=== PATIENT | male | born 1925 | race Caucasian/White ===

== ENCOUNTER 2016-09-08 21:51 | Inpatient (IN) | payer MEDICARE ==
[~2016-09-08] VITALS: Ht 175.3 cm; Wt 75.2 kg
[~2016-09-08 21:51] MED LIST: ACET325T51 PO; ASCO250T7 PO; CHOL10008 PO; CLOP75TA3 PO; FUR20 PO; GLYB1.253 PO; LISI-567 PO; LOVA20TA PO; METO25TA6 PO; MULT1CAP33 PO; POTA10CA42 PO; PRE20 PO; UBID100C25 PO; prevagen PO
[2016-09-08 21:54] VITALS: BP 151/84; PULSE 60; RESP 20; O2SAT 97
[2016-09-08 22:04] VITALS: BP 151/84; PULSE 60; RESP 20; O2SAT 97
--- NOTE | 2016-09-08 22:08 | ED.REPORT ---
HPI-Dyspnea / Wheezing Date of Service Sep 08, 2016 ED Provider: Dillon Gann MD Pt is a demented 89 year old male with a history of atrial fibrillation, congestive heart failure, diabetes mellitus, hypertension, and coronary artery disease who presents to the ED with concerns for increased shortness of breath today, following a brief episode of chest pain this morning. His states that the episode of chest past this morning lasted a couple of minutes and was severe enough to make him lay in his bed. Pt's also reports ongoing shortness of breath, with dyspnea on exertion that was worse in severity today. He reports taking his medications as prescribed. He denies any radiation of his chest pain, cough, diaphoresis, fever, chills, or other complaints. Patient was last admitted to [facility] on 08/06 for similar complaints. Patient has refused anticoagulation for atrial fibrillation in the past. History is limited by the patient's dementia. Nursing Notes Stated Complaint: SOB/ HIGH BLOOD PRESSURE Chief Complaint: Respiratory Distress Nursing Notes Reviewed: Yes Allergies: Coded Allergies: ibuprofen (Verified Allergy, Severe, 09/08/16) bleeding Scheduled ([prevagen]) 1 TAB PO QAM Ascorbate Calcium (Vitamin C) 500 Mg Tablet 500 MG PO DAILY Cholecalciferol (Vitamin D3) (Vitamin D3) 1,000 Unit Tab.chew 1,000 UNIT PO HS Clopidogrel Bisulfate (Plavix) 75 Mg Tablet 75 MG PO DAILY Furosemide (Furosemide) 40 Mg Tablet 40 MG PO DAILY Lisinopril (Lisinopril) 20 Mg Tablet 20 MG PO DAILY Lovastatin (Lovastatin) 20 Mg Tablet 20 MG PO HS Memantine (Namenda) 10 Mg Tablet 10 MG PO BID Metoprolol Tartrate (Metoprolol Tartrate) 25 Mg Tablet 25 MG PO BID Multivitamin (Multivitamins) 1 Each Capsule 1 EACH PO DAILY Scheduled PRN Acetaminophen (Acetaminophen) 325 Mg Tablet 325 MG PO Q4H PRN PRN For Fever Miscellaneous Medications Ubidecarenone (Co Q10) 100 Mg Capsule 100 MG PO General Time Seen by MD: 22:08 Chief Complaint Shortness of breath Hx Obtained From: Patient, Spouse Arrived By: Walk-in Sudden in Onset?: Yes Onset Occurred: 5 - 8 hours ago Symptom Duration: 1 - 15 minutes Location: : None Severity: Current: No pain currently Severity: Maximum: Mild Similar Sx Previous: Yes Past Medical History Past Medical History Paroxysmal a-fib - not on anticoagulation Sigmoid diverticulosis 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 Dementia Bilateral carotid stenosis from MRA in 2009 H/o TIA's Reports: Congestive heart failure, Coronary artery disease, Diabetes mellitus, Hyperlipidemia, Hypertension Reports: Thyroid disease Past Surgical History Hemorrhoid surgery Reports: Cholecystectomy Smoking History Former Smoker Social History Other Social History: Good social support, , Local resident Ambulatory Status Independent Review of Systems Unable to Obtain ROS Mental status (limited by dementia) Constitutional: Denies: Chills, Fever, Weakness - generalized Respiratory: Reports: Shortness of breath, Denies: Non-productive cough, Wheezing Cardiovascular: Reports: Chest pain, Denies: Syncope Musculoskeletal: Denies: Extremity pain, Extremity swelling Skin: Denies Diaphoresis Physical Exam Initial Vital Signs Vital Signs (First) Date Time Temp Pulse Resp B/P Pulse Ox O2 Delivery O2 Flow Rate FiO2 09/08/16 21:54 36.2 60 20 151/84 97 Room Air Initial VS: Reviewed Head / Eyes: Atraumatic, Normocephalic, PERRL ENT: Mucous membranes moist, Conjunctiva normal, No scleral icterus Abdomen / GI: Soft, Non-tender, No guarding, No rebound, No distention Extremities: Vascular intact, Neuro intact Skin: Warm, Dry, No cyanosis Neurologic: Alert, Nonfocal Psychiatric: Mood/affect normal, Behavior normal General/Constitutional: Awake, Alert, Well nourished, Cooperative Neck: Atraumatic, Supple Positive jugular venous distention Respiratory / Chest: Atraumatic, Breath sounds NL, Breath sounds = bilat, No respiratory distress Cardiovascular: Heart sounds NL, No gallop, No murmurs, No rubs Interpretation & Diagnostics Lab Results Interpretation Result Diagram: 09/09/16 0645 09/09/16 0645 Test 09/09/16 00:05 Total Bilirubin 0.6mg/dL (0.0-1.2) Aspartate Amino Transf (AST/SGOT) 15U/L (0-50) Alanine Aminotransferase (ALT/SGPT) 9U/L (0-44) Alkaline Phosphatase 71U/L (25-160) Pro-B-Type Natriuretic Peptide 7574pg/mL (0-486) Total Protein 6.4g/dL (6.4-8.4) Albumin 3.2g/dL (3.4-5.0) ECG Interpretation ECG Interpretation: Atrial fibrillation, Rate 92 LBBB No change from prior Time: 22:47 Interpreted by: ED physician X-Ray Chest Interpretation Chest Xray Interpretation: Chronic changes. Cardiomegaly. No significant changes from previous View: Portable, 1 view Interpretation / Wet Read by: Wet read ED physician Re-Eval/Medical Decision Med Decision/Clinical Course Received in transfer from Dr. Stevens at midnight. Labs reported subsequently show marked increase in troponin, consistent with non-STEMI. His chronic troponin leak with chronic CHF and strain, but he is numbers are now ten fold above upper limit of normal and 6-7 fold above his recent baseline plateau. He is in no distress at present, with no chest pain. He is quite demented and rarely able to process the need to be in the hospital. wants him admitted. Source of Hx: Old records Summary of Info: Pt was admitted 08/06-08/08 for a CHF exacerbation, gout, a-fib. Anti-coagulation was suggested, he refused. Re-Evaluation/Progress : Time of Eval: 01:31 Re-Evaluation/Progress Note: Care assumed by Dr. Gann. Informed his of the results of his labs, chest x-ray, and EKG. It is recommended that he be admitted to the hospital at this time. Troponin is now very elevated. His BNP is also elevated. His agrees with the plan for hospital admission. All questions were addressed. Consultation : Referral / Consult Name: Maisha Crawford DO Consulted With: Hospitalist Call Returned at: 02:02 Table Worker: Will see patient, Agrees with eval, Agrees with plan, Accepts admit Note: Spoke with Dr. Crawford, hospitalist, who agrees to accept admit. Counseled Regarding: Diagnosis, Lab results, Need for admission Discharge & Departure Impression: Primary Impression: NSTEMI (non-ST elevated myocardial infarction) Additional Impressions: Acute exacerbation of CHF (congestive heart failure) Elevated troponin Disposition: ADMITTED TO HOSPITAL Discharge Condition All VS Reviewed: Yes Condition: Stable Referrals: Laura Humphries MD (PCP) Care Transferred to: Dr. Gann Care Transferred at: 00:00 Scribe Attestation Portions of this note were transcribed by Yuni Santoyo and Ivory Darden. I, Dr. Stevens and Dr. Gann, personally performed the history, physical exam and medical decision-making; I reviewed and confirmed the accuracy of the information in the transcribed note. Signed by: Adryan Back, 09/08/2016 3823 Signed by: Adryan York, 09/09/2016 0203 copies to: Laura Humphries MD, Donald L MD Sep 08, 2016 22:08 RAAD SANTOYO Sep 08, 2016 22:15 Ivory Darden Sep 09, 2016 00:00 Dillon Gann MD Sep 09, 2016 01:44 Pro-B-Type Natriuretic Peptide 7574pg/mL (0-486) Total Protein 6.4g/dL (6.4-8.4) Albumin 3.2g/dL (3.4-5.0) ECG Interpretation ECG Interpretation: Atrial fibrillation, Rate 92 LBBB No change from prior Time: 22:47 Interpreted by: ED physician X-Ray Chest Interpretation Chest Xray Interpretation: Chronic changes. Cardiomegaly. No significant changes from previous View: Portable, 1 view Interpretation / Wet Read by: Wet read ED physician Re-Eval/Medical Decision Med Decision/Clinical Course Received in transfer from Dr. Stevens at midnight. Labs reported subsequently show marked increase in troponin, consistent with non-STEMI. His chronic troponin leak with chronic CHF and strain, but he is numbers are now ten fold above upper limit of normal and 6-7 fold above his recent baseline plateau. He is in no distress at present, with no chest pain. He is quite demented and rarely able to process the need to be in the hospital. wants him admitted. Source of Hx: Old records Summary of Info: Pt was admitted 08/06-08/08 for a CHF exacerbation, gout, a-fib. Anti-coagulation was suggested, he refused. Re-Evaluation/Progress : Time of Eval: 01:31 Re-Evaluation/Progress Note: Care assumed by Dr. Gann. Informed his of the results of his labs, chest x-ray, and EKG. It is recommended that he be admitted to the hospital at this time. Troponin is now very elevated. His BNP is also elevated. His agrees with the plan for hospital admission. All questions were addressed. Consultation : Referral / Consult Name: Sullenberger,Maisha E DO Consulted With: Hospitalist Call Returned at: 02:02 Table Worker: Will see patient, Agrees with eval, Agrees with plan, Accepts admit Note: Spoke with Dr. Crawford, hospitalist, who agrees to accept admit. Counseled Regarding: Diagnosis, Lab results, Need for admission Discharge & Departure Impression: Primary Impression: NSTEMI (non-ST elevated myocardial infarction) Additional Impressions: Acute exacerbation of CHF (congestive heart failure) Elevated troponin Disposition: ADMITTED TO HOSPITAL Discharge Condition All VS Reviewed: Yes Condition: Stable Referrals: Laura Humphries MD (PCP) Care Transferred to: Dr. Gann Care Transferred at: 00:00 Adryan Attestation Portions of this note were transcribed by Yuni Santoyo and Ivory Darden. I, Dr. Stevens and Dr. Gann, personally performed the history, physical exam and medical decision-making; I reviewed and confirmed the accuracy of the information in the transcribed note. Signed by: Adryan Back, 09/08/2016 2215 Signed by: Adryan York, 09/09/2016 0203 copies to: Laura Humphries MD, Donald L MD Sep 08, 2016 22:08 RAAD SANTOYO Sep 08, 2016 22:15 Ivory Darden Sep 09, 2016 00:00 Dillon Gann MD Sep 09, 2016 01:44
[2016-09-08] MEDS ORDERED: GLYB1.253 PO (23:06)
[2016-09-08] MEDS ORDERED: ASCO-294 PO (23:06)
[2016-09-08] MEDS ORDERED: FURO40TA4 PO (23:06)
[2016-09-08] MEDS ORDERED: CHOL10008 PO (23:06)
[2016-09-08] MEDS ORDERED: NAM10 PO (23:06)
[2016-09-09] VITALS (7 sets, daily range): BP systolic 138–152; BP diastolic 54–72; PULSE 70–91; RESP 16–20; O2SAT 93–100
[2016-09-09 00:17] LABS: BASOPHILS % (AUTO) 0.1 % (0-3); EOSINOPHILS % (AUTO) 1.4 % (0-5); MONOCYTES % (AUTO) 8.2 % (4-12); Mean Corpuscular Hemoglobin 31.4 pg (27.0-35.0); Mean Corpuscular Volume 97.6 fL (81-100); NEUTROPHILS % (AUTO) 78.9 % (40-74); Platelet Count 126 bil/L (150-400)
[2016-09-09 00:57] LABS: TROPONIN T 0.16 ug/L (0.0-0.011)
[2016-09-09] MEDS ORDERED: Heparin 5,000 Unit/mL Inj IVPUSH ONE (01:45)
[2016-09-09] MEDS ORDERED: Furosemide 10 mg/mL 4 mL Inj IVPUSH ONE (01:45)
[2016-09-09] MEDS ORDERED: Nitroglycerin 2% 1 Gm Ointment TOPICAL SCH (01:45)
[2016-09-09] MEDS ORDERED: Heparin 5,000 Unit/mL Inj IVPUSH PRN (01:45)
[2016-09-09] MEDS ORDERED: Polyethylene Glycol (PEG) 17 Gm Powder PO PRN (02:25)
[2016-09-09] MEDS ORDERED: Ondansetron 2 mg/mL 2 mL Inj IVPUSH PRN (02:25)
[2016-09-09] MEDS ORDERED: Alum-Mag Hydrox-Simeth 30 mL Suspension PO PRN (02:25)
[2016-09-09] MEDS ORDERED: Senna-Docusate 8.6-50 mg Tablet PO PRN (02:25)
[2016-09-09] MEDS: Heparin 25K Unit/500mL 0.45 NS 25,000 UNIT in IV Premix 1 EACH IV SCH (02:34)
--- NOTE | 2016-09-09 03:43 | PCM.HPMED ---
Subjective Date of Service Sep 09, 2016 Primary Provider: Admitting Physician: Maisha Crawford DO Primary Care Physician: Laura Humphries MD Attending Physician: Maisha Crawford DO Admit Status: From the Emergency Department, Full Admit Chief Complaint: Chest pain and shortness of breath. . History of Present Illness: Scott Bolaños is a demented 89-year-old male with a past medical history significant for atrial fibrillation, congestive heart failure, diabetes mellitus , hypertension, and coronary artery disease who presents to [facility] Emergency Department with concerns for two episodes of chest pain with accompanying shortness of breath. His states that he had 2 episodes of chest pain today. She reports one episode of chest pain at rest that lasted several minutes. The second episode of chest pain occurred while he was exerting himself by climbing up his flight of stairs to the bedroom and was severe enough to make him lay in his bed. A second episode of chest pain lasted 2-3 minutes as well and resolved with rest. The pain was described as pressure-like sensation. The pain is located substernally and does not radiate. The patients also reports ongoing shortness of breath, with dyspnea on exertion that was worse in severity today. He reports taking his medications as prescribed. He denies headache, any radiation of his chest pain, cough, diaphoresis, nausea, vomiting fever, chills, or other complaints. He was last admitted to [facility] on 08/06 for similar complaints. History is somewhat limited by the patient's dementia. Vital signs in the ER: Temperature 36.2. Pulse 60. Respiratory rate 20. Blood pressure 151/84. Pulse ox 97% and remained. He was given half inch nitroglycerin paste, Lasix 40 mg IV 1 and started on a cardiac heparin drip. PCP is Trisha Humphries MD. . Review of Systems: A comprehensive review of systems was conducted with the patient and found to be negative except as above in the History of Present Illness. . Allergies Coded Allergies: ibuprofen (Verified Allergy, Severe, 09/08/16) bleeding Home Medications ([prevagen]) 1 TAB PO QAM Ascorbate Calcium (Vitamin C) 500 Mg Tablet 500 MG PO DAILY Cholecalciferol (Vitamin D3) (Vitamin D3) 1,000 Unit Tab.chew 1,000 UNIT PO HS Clopidogrel Bisulfate (Plavix) 75 Mg Tablet 75 MG PO DAILY Furosemide (Furosemide) 40 Mg Tablet 40 MG PO DAILY Lisinopril (Lisinopril) 20 Mg Tablet 20 MG PO DAILY Lovastatin (Lovastatin) 20 Mg Tablet 20 MG PO HS Memantine (Namenda) 10 Mg Tablet 10 MG PO BID Metoprolol Tartrate (Metoprolol Tartrate) 25 Mg Tablet 25 MG PO BID Multivitamin (Multivitamins) 1 Each Capsule 1 EACH PO DAILY Potassium Chloride (Potassium Chloride) 10 Meq Capsule.er 8 MEQ PO DAILY Acetaminophen (Acetaminophen) 325 Mg Tablet 325 MG PO Q4H PRN PRN For Fever Glyburide (Glyburide) 1.25 Mg Tablet 1.25 MG PO HS PRN PRN hyperglycemia . PMH 1. Paroxysmal atrial fibrillation not on anticoagulation. 2. Sigmoid diverticulosis 3. 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 4. Dementia. 5. Bilateral carotid stenosis from MRA in 2009. 6. History of TIA's. 7. Systolic and diastolic CHF (Echo 10/2015 shows EF 35-40% with inferior wall hypokinesis). 8. Coronary artery disease status post stenting x 2 (of mid and distal RCA in ) 9. Diabetes mellitus type II, diet controlled. 10. Hyperlipidemia. 11. Hypertension. 12. Hypothyroidism. 13. CKD stage II. 14. Anemia of chronic disease. . Surgical History 1. Hemorrhoid surgery. 2. Cholecystectomy. . Family History Mother had diabetes mellitus type II and colonic surgery and shortly after postoperatively of an [place] in her 80s. Father of old age at 98 years old. A brother and sister both who from lung cancer. . Social History Hx Alcohol Use: No Hx Substance Use: No Hx Tobacco Use: Yes (20 pack year history; quit in 1967) Smoking Status: Former Smoker Additional Information The patient has been for 55 years, has 1 biological son of his own who is healthy, and worked in the , as well as, for [employer]. . Exam Vital Signs Vital Sign - Last Date Time Temp Pulse Resp B/P Pulse Ox O2 Delivery O2 Flow Rate FiO2 09/08/16 22:04 36.2 60 20 151/84 97 Room Air Exam General: Elderly male lying in bed and in no acute distress, well-developed, well-nourished, appropriately interactive. HEENT: Normocephalic, atraumatic. External ears without defect. Pupils equal, round, and reactive to light. Anicteric sclerae, moist conjunctivae, and no lid lag. Oropharynx free of erythema and cobble stoning with moist mucosa. Neck: Supple with full range of motion. No jugular venous distension. No bruits. No lymphadenopathy or thyromegaly. Cardiovascular: Irregularly irregular without murmurs, rubs, or gallops appreciated. Pulmonary: Clear to auscultation bilaterally throughout except for fine crackles at left base. No wheezes or rhonchi. Normal respiratory effort with no use of accessory muscles. Abdomen: Soft, nontender, nondistended, bowel sounds present. No hepatosplenomegaly or masses appreciated. Extremities: No clubbing or cyanosis. Slight trace pitting edema. Skin: Normal temperature, turgor, and texture; no rash, ulcers, or subcutaneous nodules appreciated. Neurological: Cranial nerves grossly intact. Normal muscle strength, tone, and bulk. Reflexes, coordination, and sensory function within normal limits. No known gait impairment. Psychiatric: Normal mood and affect. Alert and oriented to person, place, and time. . Lab and Diagnostics Labs Item Value Date Time Calcium Level 8.2 mg/dL L 09/09/16 0005 Magnesium Level 2.0 mg/dL 09/09/16 0005 Total Bilirubin 0.6 mg/dL 09/09/16 0005 Aspartate Amino Transf (AST/SGOT) 15 U/L 09/09/16 0005 Alanine Aminotransferase (ALT/SGPT) 9 U/L 09/09/16 0005 Alkaline Phosphatase 71 U/L 09/09/16 0005 Troponin T 0.160 ug/L *H 09/09/16 0005 Pro-B-Type Natriuretic Peptide 7574 pg/mL H 09/09/16 0005 Total Protein 6.4 g/dL 09/09/16 0005 Albumin 3.2 g/dL L 09/09/16 0005 Result Diagram: 09/09/16 0005 09/09/16 0005 X-Rays, CTs and MRIs Chest x-ray read by resident: Pulmonary edema with cephalization likely secondary to CHF exacerbation. Official read pending. . 12-lead ECG EKG: Atrial fibrillation, heart rate 92, blood bundle branch block. Cardiac Echo Impressions Echocardiogram Interpretation Summary: Afib with variable rate; HR is 95-106 bpm. Wide QRS complexes. Mildly dilated LV wsith normal wall thickness. There is inferior wall severe hypokinesis and septal dyskinesis consistent with conduction system disease. EF is estimated at 30-35%. There are no significant valvular abnormalities. Compared to prior study 10/30/2015, LV is less dynamic; afib rate control is worse. EF is down slightly from 35-40% to 30-35%. . Assessment & Plan Scott Bolaños is a demented 89-year-old male with a past medical history significant for atrial fibrillation, congestive heart failure, diabetes mellitus , hypertension, and coronary artery disease who presents to [facility] Emergency Department with concerns for two episodes of chest pain with accompanying shortness of breath. 1. Acute chest pain, present on admission. Active. - Patient presented with 2 episodes of chest pain earlier today with accompanying shortness of breath and substantially more elevated troponins than in the past.. - Cardiac risk factors include hypertension, hyperlipidemia, former smoker, CAD status post stents 2, - EKG shows atrial fibrillation with left bundle branch block, as above. However, he meets Sgarbossa's criteria with greater than 1 mm elevation in concordant leads in lead V2 possibly indicative of STEMI vs NSTEMI. - Recent echocardiogram 07/2017 shows EF of 30-35%, as above. - Ordered serial troponins 3. - Supplemental oxygen as needed. - Morphine as needed 1-2 mg IV every 15 minutes for chest pain. - Nitro Paste as needed. Currently has half an inch in place. - Received aspirin 81 mg in ED. Continue aspirin 81 mg daily. - Cardiac heparin gtt started. - Continue to monitor closely on telemetry and vital signs. - Patient currently has had nothing by mouth overnight. May consider heart healthy diet once cardiology has seen the patient. - Dayteam to consult cardiology first thing in the morning. 2. Acute on chronic systolic CHF exacerbation present on admission. Active. - Patient received 40 mg IV Lasix in the ED. Continue this daily for now. - Chest x-ray revealed pulmonary edema with cephalization represent fluid overload. - Monitor dyspnea on exertion and signs of fluid overload daily. Chronic problems: Anemia of chronic disease, chronic. - Secondary to CKD stage II. - Monitor H&H closely. Paroxysmal atrial fibrillation not on anticoagulation. - Patient on metoprolol tartrate 25 mg twice a day which will continue. Dementia, chronic. - Continue memantine 10 mg twice a day. Coronary artery disease status post stenting x 2 (of mid and distal RCA in 2007). - See plan above under problem #1 Diabetes mellitus type II, diet controlled. - Started low correction dose insulin. - Ordered hemoglobin A1c, pending. - May consider heart healthy diet/ carbohydrate consistent diet once cardiology has seen the patient. Hyperlipidemia. - Continue home statin lovastatin 20 mg Hypertension. - Continue home dose lisinopril 20 mg daily. PRN antiemetics: Zofran and Maalox. PRN bowel regimen: Senna and MiraLAX. PRN analgesics: Tylenol and morphine. High risk medications: Morphine Patient is admitted under inpatient status with expected length of stay greater than 2 midnights due to severity of presenting symptoms, risk of adverse event, and complexity of treatment plan. . VTE Prophylaxis: Other (heparin GTT) Resuscitation Status: Limited Interventions (DO NOT INTUBATE, chest compressions, IV fluids, and antibiotics are okay) Attending Statement The patient was seen and examined together with house staff on 09/09/2016 and I agree with the history, exam and plan as outlined in the note above. Vicki Sylvester DO Sep 09, 2016 03:25 Maisha Crawford DO Sep 09, 2016 05:54
--- NOTE | 2016-09-09 04:19 | NUR ---
Admit Pt arrived on unit at 0320 [facility]. Pt SBA to ambulate to BR, scale and bed. Pt A&O to self/place. at bedside. Pt has dementia and is poor historian. Health history provided by . Pt denies CP or pressure at this time. VSS. See flowsheet for full assessment.
[2016-09-09] MEDS ORDERED: Glucose 40% Oral Gel 15 Gm Tube PO PRN (04:45)
[2016-09-09 07:04] LABS: BASOPHILS % (AUTO) 0.1 % (0-3); EOSINOPHILS % (AUTO) 1.9 % (0-5); MONOCYTES % (AUTO) 10.8 % (4-12); Mean Corpuscular Hemoglobin 31.2 pg (27.0-35.0); Mean Corpuscular Volume 97.4 fL (81-100); NEUTROPHILS % (AUTO) 65.7 % (40-74); Platelet Count 117 bil/L (150-400)
--- NOTE | 2016-09-09 07:27 | DRSVH ---
PROCEDURE: X-RAY CHEST ONE VIEW, PORTABLE ([id number]) INDICATIONS: dyspnea TECHNIQUE: One view of the chest was acquired. COMPARISON: [facility], CR, XR CHEST 1VW (PORTABLE), 08/06/2016, 1:32. [facility], CR, XR CHEST 1VW (PORTABLE), 05/07/2016, 18:18. FINDINGS: Surgical changes and devices: None. Lungs and pleura: No pleural effusions or pneumothorax. Mild chronic appearing basilar interstitial pulmonary opacity. Mediastinum: Mediastinal contours appear normal. Heart size is enlarged. Bones and chest wall: No suspicious bony lesions. Overlying soft tissues appear unremarkable. IMPRESSION: No acute process. Concordant with preliminary interpretation. Dictated by: Norma Pearl M.D. on 09/09/2016 at 7:25 Approved by: Norma Pearl M.D. on 09/09/2016 at 7:26
[2016-09-09] MEDS: Insulin LISPRO 300 Unit/3 mL Inj SUBQ SCH ×4 (08:00→20:17)
[2016-09-09] MEDS ORDERED: Furosemide 10 mg/mL 4 mL Inj IVPUSH SCH (08:30)
--- NOTE | 2016-09-09 08:41 | NUR ---
Poor Historian Patient cooperative with care, but states he does not remember what kind of medications he takes or how often. Reported to MD. Care continues.
[2016-09-09] MEDS: Sodium Chloride LOK Flush 10 mL Syringe IVFLUSH SCH ×2 (09:09→17:44)
[2016-09-09] MEDS ORDERED: UBID100C27 PO (10:47)
--- NOTE | 2016-09-09 11:10 | NUR ---
Social Work Note: Initial Assessment Data& Assessment: EMR reviewed. SW met with pt and pt at bedside to discuss discharge planning, SW role explained. Scott Bolaños is a 89 year old male admitted on 09/09/2016 for CHF and elevated troponin. Pt has [employer] Medicare insurance coverage and sees Dr. Humphries for primary care. Pt lives in [place] with his in a two story home with 7 steps to enter the home and 7 steps to reach the second floor of the home. Pt uses a cane at baseline, and also owns a FWW. Pt is currently ambulating SBA with a cane in his room. Pt assists with medication management, chores, SBA showering and meal preparation. Pt is otherwise independent with all other ADL's. Pt transports pt to any appointments, pt does not drive. Pt has had [facility] recently, not currently open with their services. Pt has not been to a SNF before. Pt does not have LTC insurance or VA benefits, although pt is a [employer] . Pt has DPOA paperwork completed at home, SW requested a copy when possible. Pt to transport pt home when medically ready. Pt denies any other needs at this time. SW provided SW phone number on pt white board. No other discharge needs identified at this time. SW to continue to follow if any needs arise. Plan: Anticipated discharge home via POV when medically ready. Pt is ambulating at his baseline at this time. Pt denies any other needs at this time. No other discharge needs identified at this time. SW to continue to follow if any needs arise. TAYLOR Gao Addendum: 09/09/16 at 1116 by LIDIA DOMINGUEZ Amended: Links added.
--- NOTE | 2016-09-09 12:45 | NUR ---
Echo Echo being performed unable to give 1215 medication. Waiting until ECHO finished.
--- NOTE | 2016-09-09 14:46 | CONS ---
[address] [address] CONSULTATION REPORT PATIENT: TREVON KIDD : 1925 MR#: [id number] ADMIT: 09/09/2016 JOB ID: [id number] DATE OF SERVICE: 09/09/2016 REASON FOR CARDIOLOGY CONSULT: For the evaluation of chest pain, abnormal troponin. CHIEF COMPLAINT: Chest pain, shortness of breath as per the chart. However, when I asked patient he does not remember what symptoms did he have. His bakery clerk, Dr. Ziegler. PRESENT HISTORY: This 89-year-old, male who has a history of coronary artery disease dated back after 2007. At that time, he had acute coronary syndrome with 90% mid and 80% to 90% distal RCA, status post TAXUS stent placement to the mid as well as distal RCA, progressively worsening ischemic cardiomyopathy since then, with LV ejection fraction 30% to 35% based on echocardiogram done on August 06, 2016, chronic left bundle branch block, atrial fibrillation, carotid artery disease, peripheral vascular disease, history of TIA, significant dementia, frailty. That is why he is not on anticoagulation, history of pulmonary hypertension, history of systolic and diastolic heart failure, chronic kidney disease, type 2 diabetes mellitus, essential hypertension, hyperlipidemia, chronic thrombocytopenia, anemia. Was brought to the ED by his because of chest pain episode yesterday. At present, patient is in room by himself. When I asked about his symptoms, he does not remember. At present, he is not having any active chest pain or shortness of breath. He appears comfortable. He does not appear to be in any distress. As per the history and physical done in this admission the patient had two episodes of chest pain yesterday, while exertion as well as rest. Lasted several minutes. I do not have his at home. No other history available by patient. At present, he is not coughing. I do not see any active blood. He is not having any stroke-like symptoms. No obvious fever or chills. The patient was recently seen by Dr. Ziegler. No aggressive cardiac workup was performed because of his comorbid conditions, significant dementia. PAST MEDICAL HISTORY: History of coronary artery disease, status post TAXUS stent placement to the mid RCA, as well as distal RCA in November 2007, progressively worsening LV function with LV ejection fraction about 30% to 35% with chronic inferior wall hypokinesis, preserved RV function, pulmonary artery systolic pressure up to 72 mmHg in the past, history of initial paroxysmal AFib and chronic AFib with underlying left bundle branch block, history of systolic and diastolic heart failure, significant dementia, essential hypertension, hypercholesterolemia, hypothyroidism, chronic thrombocytopenia, chronic kidney disease and multiple other medical problems including PAD. PAST SURGICAL HISTORY: Hemorrhoid surgery. Cholecystectomy, CAD intervention as stated above. ALLERGIES: IBUPROFEN. HOME MEDICATIONS: 1. Vitamin C. 2. Plavix 75 mg daily. 3. Lasix 40 mg daily. 4. Lisinopril 20 mg daily. 5. Lovastatin 20 mg q.h.s. 6. Metoprolol tartrate 25 mg daily. 7. Namenda 10 mg b.i.d. 8. Multivitamin one capsule daily. 9. Potassium chloride 8 mEq daily. 10. Glyburide 12.5 mg q.h.s. REVIEW OF SYSTEMS: I tried to obtain at least 10-point review of system. However, as patient has significant dementia, hat information is not very reliable. FAMILY HISTORY: Positive for diabetes mellitus. SOCIAL HISTORY: No obvious alcohol abuse. The patient is a former smoker. PHYSICAL EXAMINATION: Blood pressure 146/61, heart rate 70, regular. Respiratory rate 16, oxygen saturation on room air 97%. Head: No significant jaundice. Neck: No apparent JVP. Chest: No obvious carotid bruits. Chest: At present, I do not appreciate any significant crepitation, rhonchi. CVS: S1 variable, P2 appears prominent. No S3, no S4. Grade 2/6 soft ejection systolic murmur at the base. Abdomen: No obvious pulsatile mass. No obvious hepatosplenomegaly. 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 Extremity: I do not see any significant pedal edema. Vascular: No evidence of critical limb ischemia. LABORATORIES: WBC 6.7, hemoglobin 9.7. On August 07, hemoglobin was 12. Platelets 117. On August 07, it was 108. MCV 97.4, PTT 75.8. Sodium 144, potassium 3.6, BUN 26, creatinine 1.15. Calcium 8.2. Magnesium 2.0. Recent bilirubin, AST, ALT normal. ProBNP 7574. Peak troponin T 0.257. On August 06, it was 0.014. EKG yesterday at 10:47 p.m. revealed atrial fibrillation with controlled ventricular rate. Rate about 92 with underlying left bundle branch block which is old. QTc 494 msec. X-ray chest: No acute process. Lower extremity duplex scan on August 27, 2016, revealed about 50% to 90% distal right SFA. Patient had a carotid Doppler in November 2013. At that time, the patient has less than 50% bilateral internal carotid artery disease. ASSESSMENT/PLAN: Episode of chest pain yesterday with abnormal troponin with known history of coronary artery disease, status post right coronary artery stenting in November 2007. That time, the patient also has significant disease of circumflex which was a small vessel at the bifurcation. The 2nd obtuse marginal branch which was managed medically because of small nature of those arteries, progressively worsening LV function with LV ejection fraction 30% to 35% with chronic inferior wall motion abnormalities with chronic AFib, left bundle branch block, peripheral artery disease, carotid artery disease and multiple other medical problems. The patient has significant dementia. Recently he was evaluated by Dr. Ziegler, who is his bakery clerk. No aggressive cardiac workup was performed. Because of significant dementia, frailty, age, and comorbid conditions and increased risk of fall. He was not started on anticoagulation other than dual anti-platelet therapy for stroke prevention. At present, he does not appear to be in gross congestive heart failure. He is not in significant distress. Hence, at this point of time, considering his overall medical conditions, will recommend medical management. I will increase metoprolol succinate 50 mg in the morning and 25 mg in the evening. Stop metoprolol tartrate. Change IV Lasix to p.o. Lasix 20 mg daily and start Aldactone 12.5 mg daily. Patient has history of gout. Keep a close watch on gout flareup with diuretic treatment. He will benefit with high intensity statin. Increase atorvastatin to 40 mg daily. Continue dual antiplatelet therapy. Total heparin duration 48 hours if there is no absolute contraindication. I saw there is a decrease in hemoglobin. Consider workup to make sure there is no GI bleed. Will recommend checking stool for guaiac as well as anemia workup which I will leave up to our hospitalist team. Discussed the plan with the hospitalist team. They agreed and concur. At this point of time, Cardiology will sign off. Follow up with Dr. Ziegler as an outpatient. Thanks for the cardiology consult. Total time spent today about 80 minutes.
--- NOTE | 2016-09-09 18:30 | NUR ---
Sweaty and pale Patient experiencing intermittent cold and hot episodes of sweating, pale skin. Notified Hydropulper.
--- NOTE | 2016-09-09 18:30 | DRSVH ---
[facility] [address] [place] [address] Echocardiogram Report Name: TREVON KIDD te: 09/09/2016 Height: 69 in Hospital Exam Location: [facility] Weight: 171 lb Gender: Male BSA: 1.9 m2 : 1925 Age: 89 yrs BP: 144/66 mmHg Reason For Study: Congestive Heart Failure Ordering Physician: María Elena Kincaid Performed By: La Davis Referring Physician: Dr Laura Humphries Interpretation Summary The left ventricle is grossly normal size. Left ventricular ejection fraction is estimated to be 30 +/- 5%. Compared to the prior exam, left ventricular function is slightly decreased. There is inferior wall severe hypokinesis. There is septal wall hypokinesis. There appears to be severe hypokinesis of mid to distal posterolateral wall, which appears to be worse than the last study. The right ventricle grossly appears normal in size with probable normal systolic function. There is moderate to severe mitral regurgitation. Compared to the prior echo study, there has been an increase in the severity of mitral regurgitation. There is mild to moderate tricuspid regurgitation. Compared to the prior echo exam, there has been an increase in TR severity. The right ventricular systolic pressure is estimated at 46 mmHg assuming a right atrial pressure of 3 mm Hg. Compared to the prior echo exam, there has been a decrease in the severity of pulmonary hypertension. Procedure: A two-dimensional transthoracic echocardiogram with color flow and Doppler was performed. The study quality was technically adequate. Comparison is made with the echocardiogram of 08/06/2016 and 10/30/2015. The patient was in atrial fibrillation with heart rates between 56-82 bpm during the exam. The patient had occasional PVCs during the exam. Left Ventricle: The left ventricle is grossly normal size. There is normal left ventricular wall thickness. Left ventricular ejection fraction is estimated to be 30 +/- 5%. Compared to the prior exam, left ventricular function is slightly decreased. Septal motion is consistent with conduction abnormality. There is inferior wall severe hypokinesis. There is septal wall hypokinesis. There appears to be severe hypokinesis of mid to distal posterolateral wall, which appears to be worse than the last study. Diastolic function could not be accurately assessed due to atrial fibrillation. Right Ventricle: The right ventricle grossly appears normal in size with probable normal systolic function. Atria: The left atrium is severely dilated. The left atrium has mildly increased in size since the prior echo exam. The right atrium is moderately dilated. The right atrium has mildly increased in size since the prior echo exam. There is no Doppler evidence for an interatrial shunt. Mitral Valve: The mitral valve leaflets appear mildly thickened, but open well. There is mild to moderate mitral annular calcification. The mitral valve leaflets are mildly calcified. There is moderate to severe mitral regurgitation. Compared to the prior echo study, there has been an increase in the severity of mitral regurgitation. Aortic Valve: The aortic valve is trileaflet. The aortic valve is mildly calcified. There is no aortic valve stenosis. No aortic regurgitation is present. Tricuspid Valve: There is mild to moderate tricuspid regurgitation. The right ventricular systolic pressure is estimated at 46 mmHg assuming a right atrial pressure of 3 mm Hg. There is moderate pulmonary hypertension. Compared to the prior echo exam, there has been an increase in TR severity. Compared to the prior echo exam, there has been a decrease in the severity of pulmonary hypertension. Pulmonic Valve: The pulmonic valve is not well visualized. There is mild pulmonic regurgitation. Great Vessels: The aortic root is normal size. There is aortic root sclerosis/calcification. The ascending aorta could not be visualized. The aortic arch could not be visualized. The IVC is of normal diameter and collapses greater than 50% with a sniff. This suggests a low right atrial pressure of 3 mm Hg. Pericardium/ Pleura There is no pericardial effusion. MMode/2D Measurements & Calculations LVIDd: 5.3 cm LA dimension: 4.5 cm RA long axis LVOT diam LVIDs: 4.4 cm FS: 17.0 % LA A2 area: 28.8 cm RA area AoV Opening EPSS: 1.8 cm LA A4 area: 30.8 cm : 1.3 cm IVSd: 0.88 cm LA length (vol): 6.6 cm : 24.9 cm LVPWd: 1.1 cm LA vol: 114.9 ml RA vol: 78.6 ml LA vol index RA : 40.7 mm2 IVC diam: 1.5 cm LV garnett. diameter/BSA LV sys. diameter/BSA RVD1 (basal) (cm/m^2): 2.7 (cm/m^2): 2.3 Doppler Measurements & Calculations Ao V2 max MV E max roberto TR max roberto MV dec time: 0.15 sec : 129.5 cm/sec : 100.4 cm/sec : 329.3 cm/sec Ao max PG TR max PG : 6.7 mmHg : 43.4 mmHg Ao mean PG PA V2 max : 101.9 cm/sec LVOT Max Roberto PA mean PG : 69.5 cm/sec PA Accel Time ASHLY(I,D): 2.1 cm sev ratio Ao V2 mean LV V1 max PG PA V2 mean ASHLY indexed to BSA : 89.9 cm/sec : 61.9 cm/sec (cm^2/m^2): 1.1 Ao V2 VTI: 26.8 cmLV V1 VTI: 14.3 cm ASHLY(V,D): 2.2 cm2 Reading Physician:VIANNEY
[2016-09-09] MEDS: MeTOProlol XL 25 mg ER24 Tablet PO SCH (20:18)
--- NOTE | 2016-09-09 23:37 | PCM.PNMED ---
Subjective Date of Service Sep 09, 2016 Subjective Scott Bolaños is a demented 89-year-old male with a past medical history significant for atrial fibrillation, congestive heart failure, diabetes mellitus , hypertension, and coronary artery disease who presented to [facility] Emergency Department with concerns for two episodes of chest pain with accompanying shortness of breath. He was admitted for observation of chest pain. Hospital day 2. Overnight: No acute events since admission. Today: This morning the patient feels well and denies any chest pain or other complaints. He denies any shortness of breath, nausea, or palpitations. He does not recall why he was admitted to the hospital. ROS is negative otherwise. Exam Vital Signs Vital Sign - Last Date Time Temp Pulse Resp B/P Pulse Ox O2 Delivery O2 Flow Rate FiO2 09/09/16 20:12 87 20 152/72 100 Room Air 09/09/16 12:08 37.0 Intake and Output 09/08/16 09/08/16 09/09/16 Cumulative From/Thru 14:59 22:59 06:59 09/08/16 21:54 - 09/09/16 06:49 Intake Total 0 ml 0 ml Output Total 275 ml 275 ml Balance -275 ml -275 ml Intake Oral 0 ml 0 ml Output Urine Total 275 ml 275 ml Exam General: Elderly male lying in bed and in no acute distress, well-developed, well-nourished, appropriately interactive. HEENT: Normocephalic, atraumatic. External ears without defect. Pupils equal, round, and reactive to light. Anicteric sclerae, moist conjunctivae, and no lid lag. Oropharynx free of erythema and cobble stoning with moist mucosa. Neck: Supple with full range of motion. No jugular venous distension. No bruits. No lymphadenopathy or thyromegaly. Cardiovascular: Irregularly irregular without murmurs, rubs, or gallops appreciated. Pulmonary: Clear to auscultation bilaterally throughout except for fine crackles at left base. No wheezes or rhonchi. Normal respiratory effort with no use of accessory muscles. Abdomen: Soft, nontender, nondistended, bowel sounds present. No hepatosplenomegaly or masses appreciated. Extremities: No clubbing or cyanosis. Slight trace pitting edema. Skin: Normal temperature, turgor, and texture; no rash, ulcers, or subcutaneous nodules appreciated. Neurological: Cranial nerves grossly intact. Normal muscle strength, tone, and bulk. Reflexes, coordination, and sensory function within normal limits. No known gait impairment. Psychiatric: Normal mood and affect. Alert and oriented to person, place, and time. IVs and Medications Medications Reviewed: Medications were reviewed in detail Lab and Diagnostics Result Diagram: 09/09/1645 09/09/16644 X-Rays, CTs and MRIs X-RAY CHEST ONE VIEW, PORTABLE IMPRESSION: No acute process. Concordant with preliminary interpretation. Dictated by: Norma Pearl M.D. on 09/09/2016 at 7:25 12-lead ECG EKG: Atrial fibrillation, heart rate 92, blood bundle branch block. Cardiac Echo Impressions Interpretation Summary The left ventricle is grossly normal size. Left ventricular ejection fraction is estimated to be 30 +/- 5%. Compared to the prior exam, left ventricular function is slightly decreased. There is inferior wall severe hypokinesis. There is septal wall hypokinesis. There appears to be severe hypokinesis of mid to distal posterolateral wall, which appears to be worse than the last study. The right ventricle grossly appears normal in size with probable normal systolic function. There is moderate to severe mitral regurgitation. Compared to the prior echo study, there has been an increase in the severity of mitral regurgitation. There is mild to moderate tricuspid regurgitation. Compared to the prior echo exam, there has been an increase in TR severity. The right ventricular systolic pressure is estimated at 46 mmHg assuming a right atrial pressure of 3 mm Hg. Compared to the prior echo exam, there has been a decrease in the severity of pulmonary hypertension. Assessment & Plan Scott Bolaños is a demented 89-year-old male with a past medical history significant for atrial fibrillation, congestive heart failure, diabetes mellitus , hypertension, and coronary artery disease who presents to [facility] Emergency Department with concerns for two episodes of chest pain with accompanying shortness of breath. 1. Acute chest pain in patient with known CAD and HFrEF, present on admission. Active. - Patient presented with 2 episodes of chest pain with accompanying shortness of breath and substantially more elevated troponins than in the past.. - Repeat ECHO marginally worsened than prior. - Supplemental oxygen as needed. - Morphine as needed 1-2 mg IV every 15 minutes for chest pain. - Nitro Paste as needed. Currently has half an inch in place. - Continue aspirin 81 mg daily. - Cardiac heparin gtt started for a total of 48 hours - Dr. Kincaid saw patient and recommended medical management due to patient's severe dementia - Metoprolol succinate 50 mg in the morning and 25 mg in the evening. Stop metoprolol tartrate. - Change IV Lasix to p.o. Lasix 20 mg daily and start Aldactone 12.5 mg daily per cardiology. - Increase atorvastatin to 40 mg daily. - Continue dual antiplatelet therapy. 2. Acute on chronic HFrEF, present on admission. Resolved. - IV Lasix switched to PO - Chest x-ray revealed pulmonary edema with cephalization represent fluid overload. - Medical management as above Chronic problems: Anemia of chronic disease, chronic. - Secondary to CKD stage II. - Monitor H&H closely. Paroxysmal atrial fibrillation not on anticoagulation. - Switched to metoprolol succinate per cardiology Dementia, chronic. - Continue memantine 10 mg twice a day. Coronary artery disease status post stenting x 2 (of mid and distal RCA in 2007). - See plan above under problem #1 Diabetes mellitus type II, diet controlled. - Started low correction dose insulin. - Ordered hemoglobin A1c, pending. Hyperlipidemia. - Atorvastatin 40 mg HS per cardiology Hypertension. - Continue home dose lisinopril 20 mg daily. PRN antiemetics: Zofran and Maalox. PRN bowel regimen: Senna and MiraLAX. PRN analgesics: Tylenol and morphine. High risk medications: Morphine Disposition: Patient can likely be discharged tomorrow. Will discuss placement with patient's tomorrow. VTE Prophylaxis: Other (heparin GTT) Resuscitation Status: Limited Interventions (DO NOT INTUBATE, chest compressions, IV fluids, and antibiotics are okay) Attending Statement The patient was seen and examined together with Dr. Vargas on 09/09/2016 and I agree with the history, exam and plan as outlined in the note above. . Marbella Vargas DO Sep 09, 2016 23:37 Paxton Beth MD Sep 14, 2016 16:04
[2016-09-10] VITALS (9 sets, daily range): BP systolic 112–157; BP diastolic 59–75; PULSE 60–87; RESP 16–24; O2SAT 94–100
[2016-09-10] MEDS: Sodium Chloride LOK Flush 10 mL Syringe IVFLUSH SCH ×3 (00:30→16:52)
[2016-09-10 02:12] LABS: BASOPHILS % (AUTO) 0.3 % (0-3); EOSINOPHILS % (AUTO) 2.3 % (0-5); MONOCYTES % (AUTO) 12.2 % (4-12); Mean Corpuscular Hemoglobin 31.1 pg (27.0-35.0); Mean Corpuscular Volume 96.6 fL (81-100); NEUTROPHILS % (AUTO) 66.3 % (40-74); Platelet Count 122 bil/L (150-400)
[2016-09-10] MEDS: Heparin 25K Unit/500mL 0.45 NS 25,000 UNIT in IV Premix 1 EACH IV SCH (03:01)
[2016-09-10] MEDS: Insulin LISPRO 300 Unit/3 mL Inj SUBQ SCH ×4 (08:00→22:18)
[2016-09-10] MEDS: MeTOProlol XL 50 mg ER24 Tablet PO SCH (08:08)
--- NOTE | 2016-09-10 11:47 | PCM.PNMED ---
Subjective Date of Service Sep 10, 2016 Subjective Scott Bolaños is a demented 89-year-old male with a past medical history significant for atrial fibrillation, congestive heart failure, diabetes mellitus , hypertension, and coronary artery disease. is admitted for medical management of chest pain due to NSTEMI and completion of heparin drip. Hospital day 3. Overnight: No acute events since admission. Today: Patient stated he is feeling well, decreased appetite, able to ambulate to bathroom without difficulty. Patient denies SOB, chest pain, chest pressure, nausea, vomiting, syncope. ROS is negative otherwise. Exam Vital Signs Vital Sign - Last Date Time Temp Pulse Resp B/P Pulse Ox O2 Delivery O2 Flow Rate FiO2 09/10/16 04:23 37.0 64 16 133/73 97 Room Air Intake and Output 09/09/16 09/09/16 09/10/16 Cumulative From/Thru 15:00 23:00 07:00 09/08/16 21:54 - 09/10/16 06:08 Intake Total 920 ml 300 ml 1220 ml Output Total 1380 ml 250 ml 1905 ml Balance -460 ml 50 ml -685 ml Intake Oral 920 ml 300 ml 1220 ml Output Urine Total 1380 ml 250 ml 1905 ml # Bowel Movements 2 2 Exam General: Elderly male lying in bed and in no acute distress, well-developed, well-nourished, appropriately interactive. HEENT: Normocephalic, atraumatic. External ears without defect. Pupils equal, round, and reactive to light. Anicteric sclerae, moist conjunctivae, and no lid lag. Oropharynx free of erythema and cobble stoning with moist mucosa. Neck: Supple with full range of motion. No jugular venous distension. No bruits. No lymphadenopathy or thyromegaly. Cardiovascular: Irregularly irregular without murmurs, rubs, or gallops appreciated. Pulmonary: Clear to auscultation bilaterally throughout except for fine crackles at left base. No wheezes or rhonchi. Normal respiratory effort with no use of accessory muscles. Abdomen: Soft, nontender, nondistended, bowel sounds present. No hepatosplenomegaly or masses appreciated. Extremities: No clubbing or cyanosis. Slight trace pitting edema. Skin: Normal temperature, turgor, and texture; no rash, ulcers, or subcutaneous nodules appreciated. Neurological: Cranial nerves grossly intact. Normal muscle strength, tone, and bulk. Reflexes, coordination, and sensory function within normal limits. No known gait impairment. Psychiatric: Normal mood and affect. Alert and oriented to person, place, and time. IVs and Medications Medications Reviewed: Medications were reviewed in detail Lab and Diagnostics Result Diagram: 09/10/1615409/10/16154 X-Rays, CTs and MRIs X-RAY CHEST ONE VIEW, PORTABLE IMPRESSION: No acute process. Concordant with preliminary interpretation. Dictated by: Norma Pearl M.D. on 09/09/2016 at 7:25 12-lead ECG EKG: Atrial fibrillation, heart rate 92, blood bundle branch block. Cardiac Echo Impressions Interpretation Summary The left ventricle is grossly normal size. Left ventricular ejection fraction is estimated to be 30 +/- 5%. Compared to the prior exam, left ventricular function is slightly decreased. There is inferior wall severe hypokinesis. There is septal wall hypokinesis. There appears to be severe hypokinesis of mid to distal posterolateral wall, which appears to be worse than the last study. The right ventricle grossly appears normal in size with probable normal systolic function. There is moderate to severe mitral regurgitation. Compared to the prior echo study, there has been an increase in the severity of mitral regurgitation. There is mild to moderate tricuspid regurgitation. Compared to the prior echo exam, there has been an increase in TR severity. The right ventricular systolic pressure is estimated at 46 mmHg assuming a right atrial pressure of 3 mm Hg. Compared to the prior echo exam, there has been a decrease in the severity of pulmonary hypertension. Assessment & Plan Scott Bolaños is a demented 89-year-old male with a past medical history significant for atrial fibrillation, congestive heart failure, diabetes mellitus , hypertension, and coronary artery disease. is admitted for medical management of chest pain due to NSTEMI and completion of heparin drip. Hospital day 3. 1. NSTEMI with known CAD and HFrEF, present on admission. Active. - Patient presented with 2 episodes of chest pain with accompanying shortness of breath and substantially more elevated troponins than in the past.. - Repeat ECHO marginally worsened than prior. - Supplemental oxygen as needed. - Morphine as needed 1-2 mg IV every 15 minutes for chest pain. - Nitro Paste as needed. Currently has half an inch in place. - Continue aspirin 81 mg daily. - Continue cardiac heparin drip started for a total of 48 hours - Dr. Kincaid saw patient and recommended medical management due to patient's severe dementia - Continue Metoprolol succinate 50 mg in the morning and 25 mg in the evening. Stop metoprolol tartrate. - Continue Aldactone 12.5 mg daily per cardiology. - Continue atorvastatin to 40 mg daily. - Continue dual antiplatelet therapy. 2. Acute on chronic HFrEF, present on admission. Resolved. - Stop IV Lasix, continue Lasix PO - Chest x-ray revealed pulmonary edema with cephalization represent fluid overload. - Medical management as above Chronic problems: 3.Anemia of chronic disease, chronic. - Secondary to CKD stage II. - Monitor H&H closely. 4.Paroxysmal atrial fibrillation not on anticoagulation. - Switched to metoprolol succinate per cardiology 5.Dementia, chronic. - Continue memantine 10 mg twice a day. 6.Coronary artery disease status post stenting x 2 (of mid and distal RCA in 2007). - See plan above under problem #1 7.Diabetes mellitus type II, diet controlled. - Started low correction dose insulin. - Ordered hemoglobin A1c, pending. 8.Hyperlipidemia. - Atorvastatin 40 mg HS per cardiology 9.Hypertension. - Continue home dose lisinopril 20 mg daily. PRN antiemetics: Zofran and Maalox. PRN bowel regimen: Senna and MiraLAX. PRN analgesics: Tylenol and morphine. High risk medications: Morphine Disposition: Patient can likely be discharged tomorrow with completion of heparin drip. Will discuss placement with patient's tomorrow. VTE Prophylaxis: Other (heparin GTT) Resuscitation Status: Limited Interventions (DO NOT INTUBATE, chest compressions, IV fluids, and antibiotics are okay) Attending Statement patient seen and examined with Dr Anthony .I agree with the history,exam, impression and plan as outlined above FERMÍN ANTHONY DO Sep 10, 2016 06:48 Parish Strong MD Sep 10, 2016 18:29
--- NOTE | 2016-09-10 17:56 | NUR ---
Heparin/POC The pt has been therapeutic x 3 with his heparin - currently at 1050 units/hr. The POC is to DC home tomorrow.
[2016-09-10] MEDS: MeTOProlol XL 25 mg ER24 Tablet PO SCH (20:15)
[2016-09-11] MEDS: Sodium Chloride LOK Flush 10 mL Syringe IVFLUSH SCH ×2 (00:30→08:21)
[2016-09-11] MEDS: Heparin 25K Unit/500mL 0.45 NS 25,000 UNIT in IV Premix 1 EACH IV SCH (02:24)
[2016-09-11 03:29] VITALS: BP 128/66; PULSE 90; RESP 20; O2SAT 97
[2016-09-11 03:48] LABS: Mean Corpuscular Volume 96.9 fL (81-100)
--- NOTE | 2016-09-11 04:18 | NUR ---
Ptt Heparin/Cardiac protocol/Confusion Ptt heparin Cardiac . @ 1050, AM Ptt heparin 61.8, Room Air, Slight confusion/owning, thought it was morning, wondered where was ? Wondered where everyone was? Easily re-oriented to place and self, On room air, One touch 207, = 1 unit Lispro 9 beats V-Tach @ 0100: asymptomatic Tele A-fib 80's
[2016-09-11 07:10] LABS: Vitamin B12 606 pg/mL (211-946)
[2016-09-11 08:01] VITALS: BP 116/57; PULSE 84; RESP 16; O2SAT 96
[2016-09-11] MEDS: MeTOProlol XL 50 mg ER24 Tablet PO SCH (08:16)
[2016-09-11] MEDS: Insulin LISPRO 300 Unit/3 mL Inj SUBQ SCH (08:17)
--- NOTE | 2016-09-11 10:20 | PCM.DIMED ---
FERMÍN ANTHONY DO 09/11/16 1020: Discharge Instructions Date of Service Sep 11, 2016 Dates of Hospitalization Sep 09, 2016 at 02:13 Discharge Diagnosis Discharge Diagnosis 1. NSTEMI with known CAD and HFrEF, present on admission. Active. 2. Acute on chronic HFrEF, present on admission. Resolved. Chronic problems: 3.Anemia of chronic disease, chronic. 4.Paroxysmal atrial fibrillation not on anticoagulation. 5.Dementia, chronic. 6.Coronary artery disease status post stenting x 2 (of mid and distal RCA in 2007). 7.Diabetes mellitus type II, diet controlled. 8.Hyperlipidemia. 9.Hypertension. Diet Heart Healthy Activity Limited until seen by PCP Call your provider Fever or Chills, Shortness of breath, Bleeding, Chest pain, Vomitting, Excessive diarrhea, Weakness (unilateral) Patient Instructions Follow up with you Primary Doctor in once week, next scheduled appointment is 09/17/16 Follow up with cardiology at next appointment 1. NSTEMI with known CAD and HFrEF, present on admission. Active. - Continue supplemental oxygen as needed. - Continue aspirin 81 mg daily. - Continue Metoprolol succinate 50 mg in the morning and 25 mg in the evening. Stop metoprolol tartrate. - Continue Aldactone 12.5 mg daily - Continue atorvastatin to 40 mg daily. - Nitroglycerin Sublingual 0.4 mg given for chest pain that will not go away with rest, take one pill and rest for 15 minutes, if chest pain continues take one more pill and rest for 15 minutes, if chest pain still continues take one more pill and call for emergency medical care. 2. Acute on chronic HFrEF, present on admission. Resolved. - Continue Lasix 40 mg by mouth once a day Chronic problems: 3.Anemia of chronic disease, chronic. - Secondary to CKD stage II. 4.Paroxysmal atrial fibrillation not on anticoagulation. - Continue Metoprolol succinate 50 mg in the morning and 25 mg in the evening 5.Dementia, chronic. - Continue memantine 10 mg twice a day. 6.Coronary artery disease status post stenting x 2 (of mid and distal RCA in 2007). - See plan above under problem #1 7.Diabetes mellitus type II, diet controlled. - Ordered hemoglobin A1c, pending. 8.Hyperlipidemia. - Atorvastatin 40 mg HS per cardiology 9.Hypertension. - Continue home dose lisinopril 20 mg daily. Follow-up plan As above Follow-up Provider: Laura Humphries MD Follow-up with PCP in: 1 week Parish Strong MD 09/11/16 1534: Discharge Instructions Attending's Statement patient seen and examined with Dr Anthony ,I agree with history,exam ,assessment and plan as outlined above . FERMÍN ANTHONY DO Sep 11, 2016 10:20 Parish Strong MD Sep 11, 2016 15:34
[2016-09-11] MEDS ORDERED: SPIR25TA PO (10:26)
[2016-09-11] MEDS ORDERED: METO25TA99 PO (10:26)
[2016-09-11] MEDS ORDERED: NITR0.4T SL (10:26)
[2016-09-11] MEDS ORDERED: ATOR40TA69 PO (10:26)
[2016-09-11] MEDS ORDERED: METO-272 PO (10:26)
[2016-09-11] MEDS ORDERED: ASPI81TA3 PO (10:29)
--- NOTE | 2016-09-11 12:06 | NUR ---
Discharge Pt discharged for transport by his to his home. Pt IV dc'd intact. Pt telemetry removed and tech notified. Pt discharge instructions, new medications and follow up appts reviewed with pt and his who is his caregiver. All questions answered and Pt's verbalized understanding. Pt's belongings were gathered and transported with pt. Pt was escorted by DIRECTOR OF EVENTS off unit to his personal vehicle.
--- NOTE | 2016-09-11 18:25 | PCM.DC.MED ---
Discharge Summary Date of Service Sep 11, 2016 Dates of Hospitalization Date of Hospital Admission Sep 09, 2016 at 02:13 Date of Discharge: Sep 11, 2016 Providers: Admitting Physician: Maisha Crawford DO Primary Care Physician: Laura Humphries MD Attending Physician: Maisha Crawford DO Diagnosis at Time of Discharge Diagnosis at Time of Discharge 1. NSTEMI with known CAD and HFrEF, present on admission. Active. 2. Acute on chronic HFrEF, present on admission. Resolved. Chronic problems: 3.Anemia of chronic disease, chronic. 4.Paroxysmal atrial fibrillation not on anticoagulation. 5.Dementia, chronic. 6.Coronary artery disease status post stenting x 2 (of mid and distal RCA in 2007). 7.Diabetes mellitus type II, diet controlled. 8.Hyperlipidemia. 9.Hypertension. Procedures XRay, CTs & MRIs X-RAY CHEST ONE VIEW, PORTABLE IMPRESSION: No acute process. Concordant with preliminary interpretation. Dictated by: Norma Pearl M.D. on 09/09/2016 at 7:25 ECG 12 Lead EKG: Atrial fibrillation, heart rate 92, blood bundle branch block. Cardiac Echo Impression Interpretation Summary The left ventricle is grossly normal size. Left ventricular ejection fraction is estimated to be 30 +/- 5%. Compared to the prior exam, left ventricular function is slightly decreased. There is inferior wall severe hypokinesis. There is septal wall hypokinesis. There appears to be severe hypokinesis of mid to distal posterolateral wall, which appears to be worse than the last study. The right ventricle grossly appears normal in size with probable normal systolic function. There is moderate to severe mitral regurgitation. Compared to the prior echo study, there has been an increase in the severity of mitral regurgitation. There is mild to moderate tricuspid regurgitation. Compared to the prior echo exam, there has been an increase in TR severity. The right ventricular systolic pressure is estimated at 46 mmHg assuming a right atrial pressure of 3 mm Hg. Compared to the prior echo exam, there has been a decrease in the severity of pulmonary hypertension. Brief History Copied from H&P "Scott Bolaños is a demented 89-year-old male with a past medical history significant for atrial fibrillation, congestive heart failure, diabetes mellitus , hypertension, and coronary artery disease who presents to [facility] Emergency Department with concerns for two episodes of chest pain with accompanying shortness of breath. His states that he had 2 episodes of chest pain today. She reports one episode of chest pain at rest that lasted several minutes. The second episode of chest pain occurred while he was exerting himself by climbing up his flight of stairs to the bedroom and was severe enough to make him lay in his bed. A second episode of chest pain lasted 2-3 minutes as well and resolved with rest. The pain was described as pressure-like sensation. The pain is located substernally and does not radiate. The patients also reports ongoing shortness of breath, with dyspnea on exertion that was worse in severity today. He reports taking his medications as prescribed. He denies headache, any radiation of his chest pain, cough, diaphoresis, nausea, vomiting fever, chills, or other complaints. He was last admitted to [facility] on 08/06 for similar complaints. History is somewhat limited by the patient's dementia." Hospital Course Scott Bolaños is a demented 89-year-old male with a past medical history significant for atrial fibrillation, congestive heart failure, diabetes mellitus , hypertension, and coronary artery disease. is admitted for medical management of chest pain due to NSTEMI and completion of heparin drip. Hospital day 3. 1. NSTEMI with known CAD and HFrEF, present on admission. improved - Patient presented with 2 episodes of chest pain with accompanying shortness of breath and substantially more elevated troponins than in the past. Medical management recemented by cardiology due to patient's severe dementia. - Repeated ECHO marginally worsened than prior. - Continued, supplemental oxygen as needed. - Continued Morphine as needed 1-2 mg IV every 15 minutes for chest pain. - Continued Nitro Paste as needed. - Continued aspirin 81 mg daily. - Continue cardiac heparin drip started for a total of 48 hours - Continued Metoprolol succinate 50 mg in the morning and 25 mg in the evening. Stop metoprolol tartrate. - Continued Aldactone 12.5 mg daily per cardiology. - Continued atorvastatin to 40 mg daily. - Continued dual antiplatelet therapy. 2. Acute on chronic HFrEF, present on admission. Resolved. - Stoped IV Lasix, continue Lasix PO - Chest x-ray revealed pulmonary edema with cephalization represent fluid overload. - Medical management as above Chronic problems: 3.Anemia of chronic disease, chronic. - Secondary to CKD stage II. 4.Paroxysmal atrial fibrillation not on anticoagulation. - Switched to metoprolol succinate per cardiology 5.Dementia, chronic. - Continued memantine 10 mg twice a day. 6.Coronary artery disease status post stenting x 2 (of mid and distal RCA in 2007). - See plan above under problem #1 7.Diabetes mellitus type II, diet controlled. - Started low correction dose insulin. - Ordered hemoglobin A1c, pending at time of discharge 8.Hyperlipidemia. - Continued Atorvastatin 40 mg HS 9.Hypertension. - Continued home dose lisinopril 20 mg daily. Exam Vital Signs (Last) Date Time Temp Pulse Resp B/P Pulse Ox O2 Delivery O2 Flow Rate FiO2 09/11/16 08:01 36.8 84 16 116/57 96 Room Air Exam General: Elderly male lying in bed and in no acute distress, well-developed, well-nourished, appropriately interactive. HEENT: Normocephalic, atraumatic. External ears without defect. Pupils equal, round, and reactive to light. Anicteric sclerae, moist conjunctivae, and no lid lag. Oropharynx free of erythema and cobble stoning with moist mucosa. Neck: Supple with full range of motion. No jugular venous distension. No bruits. No lymphadenopathy or thyromegaly. Cardiovascular: Irregularly irregular without murmurs, rubs, or gallops appreciated. Pulmonary: Clear to auscultation bilaterally throughout except for fine crackles at left base. No wheezes or rhonchi. Normal respiratory effort with no use of accessory muscles. Abdomen: Soft, nontender, nondistended, bowel sounds present. No hepatosplenomegaly or masses appreciated. Extremities: No clubbing or cyanosis. Slight trace pitting edema. Skin: Normal temperature, turgor, and texture; no rash, ulcers, or subcutaneous nodules appreciated. Neurological: Cranial nerves grossly intact. Normal muscle strength, tone, and bulk. Reflexes, coordination, and sensory function within normal limits. No known gait impairment. Psychiatric: Normal mood and affect. Alert and oriented to person, place, and time. Test 09/09/16 00:05 09/09/16 06:45 09/09/16 08:15 09/09/16 12:20 Total Bilirubin 0.6mg/dL (0.0-1.2) Aspartate Amino Transf (AST/SGOT) 15U/L (0-50) Alanine Aminotransferase (ALT/SGPT) 9U/L (0-44) Alkaline Phosphatase 71U/L (25-160) Pro-B-Type Natriuretic Peptide 7574pg/mL (0-486) Total Protein 6.4g/dL (6.4-8.4) Albumin 3.2g/dL (3.4-5.0) Hemoglobin A1c 7.2% (4.8-5.6) Magnesium Level 2.0mg/dL (1.6-2.6) Vitamin B12 Level 606pg/mL (211-946) Folate > 19.9ng/mL (>3.0) Iron Level 27ug/dL (35-150) Total Iron Binding Capacity 188ug/dL (250-450) Percent Iron Saturation 14%sat (15-50) Unsaturated Iron Binding 161.0ug/dL Reticulocyte Count,Calculated 1.8% (0.6-2.6) Test 09/09/16 14:00 09/10/16 01:55 09/11/16 03:13 Troponin T 0.242ug/L (0.0-0.011) Neutrophils (%) (Auto) 66.3% (40-74) Lymphocytes (%) (Auto) 18.8% (14-46) Monocytes (%) (Auto) 12.2% (4-12) Eosinophils (%) (Auto) 2.3% (0-5) Basophils (%) (Auto) 0.3% (0-3) Triglycerides Level 68mg/dL (0-149) Cholesterol Level 104mg/dL (100-199) LDL Cholesterol, Calculated 56.400mg/dL (0-99) VLDL Cholesterol 13.600mg/dL HDL Cholesterol 34mg/dL (>39) Cholesterol/HDL Ratio 3.06 (0.0-4.4) White Blood Count 6.6th/mm3 (3.8-10.1) Red Blood Count 3.23mil/mm3 (4.40-5.80) Hemoglobin 10.0g/dL (13.8-17.2) Hematocrit 31.3% (41.0-50.0) Mean Corpuscular Volume 96.9fL (81-100) Mean Corpuscular Hemoglobin 31.0pg (27.0-35.0) Mean Corpuscular Hemoglobin Concent 31.9% (32.0-37.0) Red Cell Distribution Width 14.6% (12.3-15.4) Platelet Count 123bil/L (150-400) Activated Partial Thromboplast Time 61.8sec (22.8-33.0) Sodium Level 141mEq/L (134-144) Potassium Level 4.0mEq/L (3.5-5.2) Chloride Level 103mEq/L (97-108) Carbon Dioxide Level 23mmol/L (18-29) Blood Urea Nitrogen 30mg/dL (8-27) Creatinine 1.09mg/dL (0.76-1.27) Estimat Glomerular Filtration Rate 68mL/min (>59) Glucose Level 129mg/dL (60-99) Calcium Level 7.8mg/dL (8.5-10.1) Discharge Medications Discharge Medications ([prevagen]) 1 TAB PO QAM (Reported) Ascorbate Calcium (Vitamin C) 500 Mg Tablet 500 MG PO DAILY (Reported) Aspirin Chew (Aspirin Chew) 81 Mg Chew 81 MG PO DAILY Prescribed by: FERMÍN WALKER DO Atorvastatin Calcium (Atorvastatin Calcium) 40 Mg Tablet 40 MG PO HS Prescribed by: FERMÍN WALKER DO Cholecalciferol (Vitamin D3) (Vitamin D3) 1,000 Unit Tab.chew 1,000 UNIT PO HS ( Reported) Clopidogrel Bisulfate (Plavix) 75 Mg Tablet 75 MG PO DAILY (Reported) Furosemide (Furosemide) 40 Mg Tablet 40 MG PO DAILY (Reported) Lisinopril (Lisinopril) 20 Mg Tablet 20 MG PO DAILY (Reported) Memantine (Namenda) 10 Mg Tablet 10 MG PO BID (Reported) Metoprolol Succinate ER (Metoprolol Succinate ER) 50 Mg Tab.er.24h 50 MG PO DAILY Prescribed by: FERMÍN WALKER DO Metoprolol Succinate ER (Metoprolol Succinate ER) 25 Mg Tab.er.24h 25 MG PO DAILY@2029 Prescribed by: FERMÍN WALKER DO Multivitamin (Multivitamins) 1 Each Capsule 1 EACH PO DAILY (Reported) Spironolactone (Aldactone) 25 Mg Tablet 12.5 MG PO DAILY Prescribed by: FERMÍN WALKER DO As needed Acetaminophen (Acetaminophen) 325 Mg Tablet 325 MG PO Q4H PRN PRN For Fever Prescribed by: REYMUNDO BARRIOS, DO Nitroglycerin SL (Nitrostat) 0.4 Mg Tab.subl 0.4 MG SL q15 PRN PRN For Chest Pain Prescribed by: FERMÍN WALKER, DO Miscellaneous Medications Ubidecarenone (Co Q10) 100 Mg Capsule 100 MG PO (Reported) Followup Plan Disposition: Home Follow-up plan Follow up with you Primary Doctor in once week, next scheduled appointment is 09/17/16 Follow up with cardiology at next appointment 1. NSTEMI with known CAD and HFrEF, present on admission. Active. - Continue supplemental oxygen as needed. - Continue aspirin 81 mg daily. - Continue Metoprolol succinate 50 mg in the morning and 25 mg in the evening. Stop metoprolol tartrate. - Continue Aldactone 12.5 mg daily - Continue atorvastatin to 40 mg daily. - Nitroglycerin Sublingual 0.4 mg given for chest pain that will not go away with rest, take one pill and rest for 15 minutes, if chest pain continues take one more pill and rest for 15 minutes, if chest pain still continues take one more pill and call for emergency medical care. 2. Acute on chronic HFrEF, present on admission. Resolved. - Continue Lasix 40 mg by mouth once a day Chronic problems: 3.Anemia of chronic disease, chronic. - Secondary to CKD stage II. 4.Paroxysmal atrial fibrillation not on anticoagulation. - Continue Metoprolol succinate 50 mg in the morning and 25 mg in the evening 5.Dementia, chronic. - Continue memantine 10 mg twice a day. 6.Coronary artery disease status post stenting x 2 (of mid and distal RCA in 2007). - See plan above under problem #1 7.Diabetes mellitus type II, diet controlled. - Ordered hemoglobin A1c, pending. 8.Hyperlipidemia. - Atorvastatin 40 mg HS per cardiology 9.Hypertension. - Continue home dose lisinopril 20 mg daily. Discharge Diet: Heart Healthy Discharge Activity: Limited until seen by PCP Patient Instructions Follow up with you Primary Doctor in once week, next scheduled appointment is 09/17/16 Follow up with cardiology at next appointment 1. NSTEMI with known CAD and HFrEF, present on admission. Active. - Continue supplemental oxygen as needed. - Continue aspirin 81 mg daily. - Continue Metoprolol succinate 50 mg in the morning and 25 mg in the evening. Stop metoprolol tartrate. - Continue Aldactone 12.5 mg daily - Continue atorvastatin to 40 mg daily. - Nitroglycerin Sublingual 0.4 mg given for chest pain that will not go away with rest, take one pill and rest for 15 minutes, if chest pain continues take one more pill and rest for 15 minutes, if chest pain still continues take one more pill and call for emergency medical care. 2. Acute on chronic HFrEF, present on admission. Resolved. - Continue Lasix 40 mg by mouth once a day Chronic problems: 3.Anemia of chronic disease, chronic. - Secondary to CKD stage II. 4.Paroxysmal atrial fibrillation not on anticoagulation. - Continue Metoprolol succinate 50 mg in the morning and 25 mg in the evening 5.Dementia, chronic. - Continue memantine 10 mg twice a day. 6.Coronary artery disease status post stenting x 2 (of mid and distal RCA in 2007). - See plan above under problem #1 7.Diabetes mellitus type II, diet controlled. - Ordered hemoglobin A1c, pending. 8.Hyperlipidemia. - Atorvastatin 40 mg HS per cardiology 9.Hypertension. - Continue home dose lisinopril 20 mg daily. Follow-up Provider: Laura Humphries MD Follow-up with PCP in: 1 week Time spent 40 minutes Attending Statement patient seen and examined with Dr Walker .I agree with the history,exam, impression and plan as outlined above copies to: Laura Humphries MD, AARON J DO Sep 11, 2016 18:25 Parish Strong MD Sep 11, 2016 18:40
--- NOTE | 2016-09-12 09:14 | NUR ---
Follow up phone for CHF patients Date: 09/12/16 Time: 0900 Information Discussed: pt with significant dementia; discussion with pt's states good understanding of chf basics denies questions or concerns re: chf or discharge instructions has f/u with PCP on 09/17 and will f/u with cardio (dr shore) declines chf packet to be mailed to home Questions patient had:
== END 2016-09-11 12:06 | disposition home or self-care (01) | DRG 280 ==
LOC: SED 21:54 → PCC 09-09 02:13
PROVIDERS: ADMIT Internal Medicine; ATTEND Internal Medicine
DX: I21.4 Non-ST elevation (NSTEMI) myocardial infarction (principal); I50.23 Acute on chronic systolic (congestive) heart failure; F03.90 Unspecified dementia, unspecified severity, without behavioral disturbance, psychotic disturbance, mood disturbance, and anxiety; Z86.73 Personal history of transient ischemic attack (TIA), and cerebral infarction without residual deficits; Z87.891 Personal history of nicotine dependence; N18.2 Chronic kidney disease, stage 2 (mild); I48.0 Paroxysmal atrial fibrillation; Z98.61 Coronary angioplasty status; I25.10 Atherosclerotic heart disease of native coronary artery without angina pectoris; E11.9 Type 2 diabetes mellitus without complications; E78.5 Hyperlipidemia, unspecified; I12.9 Hypertensive chronic kidney disease with stage 1 through stage 4 chronic kidney disease, or unspecified chronic kidney disease; Z79.02 Long term (current) use of antithrombotics/antiplatelets; Z79.84 Long term (current) use of oral hypoglycemic drugs